=== PATIENT | male | born 1955 | race Native Hawaiian/Other Pacific Islander ===

== ENCOUNTER 2018-07-14 07:18 | Outpatient (CLI) | payer BC ==
[2018-07-14 08:13] LABS: PLATELET COUNT 164 K/uL (142-355)
[2018-07-14 08:46] LABS: POTASSIUM 4.5 mmol/L (3.6-5.2)
== END 2018-07-14 20:58 | disposition home or self-care (01) ==
LOC: LABW 07:18
PROVIDERS: Internal Medicine Cardiovascular Disease
DX: E78.5 Hyperlipidemia, unspecified (principal); I25.720 Atherosclerosis of autologous artery coronary artery bypass graft(s) with unstable angina pectoris; I10 Essential (primary) hypertension; I51.9 Heart disease, unspecified
CPT/HCPCS: 36415; 80053; 80061; 82248; 85027

== ENCOUNTER 2021-11-11 12:16 | Outpatient (CLI) | payer OTHER ==
[2021-11-11 12:45] LABS: PLATELET COUNT 167 K/uL (142-355)
[2021-11-11 12:56] LABS: POTASSIUM 4.2 mmol/L (3.6-5.2)
== END 2021-11-11 22:08 | disposition home or self-care (01) ==
LOC: LABW 12:16
PROVIDERS: ATTEND Nurse Practitioner
DX: U07.1 COVID-19 (principal)
CPT/HCPCS: 36415; 80053; 85027; 85379; 86140